=== PATIENT | female | born 1965 | race Two or more races ===

== ENCOUNTER 2021-11-14 07:23 | Outpatient (CLI) | payer OTHER | END 2021-11-14 07:25 | disposition home or self-care (01) | LOC: NUCLEAR 07:23 | PROVIDERS: ATTEND Internal Medicine Pulmonary Disease | DX: R91.1 Solitary pulmonary nodule (principal) | CPT/HCPCS: 78815; A9552 ==

== ENCOUNTER 2023-03-26 12:21 | Outpatient (CLI) | payer OTHER | END 2023-03-26 12:31 | disposition home or self-care (01) | LOC: RAD 12:21 | PROVIDERS: ATTEND Orthopaedic Surgery | DX: M25.561 Pain in right knee (principal); M25.562 Pain in left knee ==

== ENCOUNTER 2023-03-30 06:14 | Outpatient (CLI) | payer OTHER | END 2023-03-30 06:33 | disposition home or self-care (01) | LOC: LAB 06:14 | PROVIDERS: ATTEND Orthopaedic Surgery | DX: D64.89 Other specified anemias (principal); E88.89 Other specified metabolic disorders; D68.8 Other specified coagulation defects; N39.0 Urinary tract infection, site not specified; A49.02 Methicillin resistant Staphylococcus aureus infection, unspecified site; Z76.89 Persons encountering health services in other specified circumstances; I49.9 Cardiac arrhythmia, unspecified; I10 Essential (primary) hypertension ==

== ENCOUNTER 2023-04-10 18:48 | Emergency (ER) | payer OTHER ==
[~2023-04-10] VITALS: Ht 162.6 cm; Wt 81.6 kg
== END 2023-04-11 00:37 | disposition home or self-care (01) ==
LOC: ER 18:48
DX: R06.02 Shortness of breath (principal); J45.909 Unspecified asthma, uncomplicated; Z20.822 Contact with and (suspected) exposure to COVID-19

== ENCOUNTER 2023-05-01 06:07 | Outpatient (CLI) | payer OTHER | END 2023-05-01 06:41 | disposition home or self-care (01) | LOC: LAB 06:07 | PROVIDERS: ATTEND Orthopaedic Surgery | DX: D64.89 Other specified anemias (principal); M06.4 Inflammatory polyarthropathy ==

== ENCOUNTER 2023-05-12 06:09 | Outpatient (CLI) | payer OTHER | END 2023-05-12 06:12 | disposition home or self-care (01) | LOC: LAB 06:09 | PROVIDERS: ATTEND Orthopaedic Surgery | DX: D64.89 Other specified anemias (principal); M06.4 Inflammatory polyarthropathy ==

== ENCOUNTER 2023-10-09 11:37 | Outpatient (CLI) | payer OTHER | END 2023-10-09 11:47 | disposition home or self-care (01) | LOC: RAD 11:37 | PROVIDERS: ATTEND Orthopaedic Surgery | DX: M25.531 Pain in right wrist (principal); M25.562 Pain in left knee ==

== ENCOUNTER 2023-10-09 13:02 | Outpatient (CLI) | payer OTHER | END 2023-10-09 13:04 | disposition home or self-care (01) | LOC: NUCLEAR 13:02 | PROVIDERS: ATTEND Orthopaedic Surgery | DX: M81.0 Age-related osteoporosis without current pathological fracture (principal) ==